=== PATIENT | female | born 1935 | race Two or more races ===

== ENCOUNTER 2018-10-26 20:05 | Inpatient (IN) | payer MEDICARE, MEDICAID ==
[~2018-10-26] VITALS: Ht 172.7 cm; Wt 87.1 kg
--- NOTE | 2018-10-26 20:10 | NUR ---
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 Pt is A, O/4, Romanian Speaking, able to walk without assistance. Seen and evaluated by Dr. Sadler at .
--- NOTE | 2018-10-26 20:20 | NUR ---
Labs drawn, EKG done. No distress noted. Pt's at BS.
[2018-10-26] MEDS ORDERED: NICARDIPINE IN NACL, ISO-OSM 200 ML IV PRN (20:30)
[2018-10-26] MEDS ORDERED: NICARDIPINE IN DEXTROSE,ISO-OS 200 ML IV ONE (20:39)
[2018-10-26 20:44] LABS: BASOPHILS # (AUTO) 0.1 /CMM (0.0-0.2); BASOPHILS % (AUTO) 0.6 % (0.0-2.0); EOSINOPHILS % (AUTO) 3.2 % (0.0-6.0); HEMATOCRIT 50 % (33-45); HEMOGLOBIN 16.4 g/dL (11.5-14.8); LYMPHOCYTES # (AUTO) 2.1 /CMM (0.8-4.8); LYMPHOCYTES % (AUTO) 26.7 % (20.0-44.0); MEAN CORPUSCULAR HGB CONC 33 g/dl (31.0-36.0); MEAN CORPUSCULAR VOLUME 88 fL (82-100); MONOCYTES # (AUTO) 0.5 /CMM (0.1-1.30); MONOCYTES % (AUTO) 6.5 % (2.0-12.0); PLATELET COUNT (AUTO) 207 /CMM (150-450)
--- NOTE | 2018-10-26 20:45 | NUR ---
Pt transported to Radiology for CT Head w/o contrast
--- NOTE | 2018-10-26 20:50 | NUR ---
Pt came back from Radiology
[2018-10-26 20:53] LABS: CARBON DIOXIDE 26 mmol/L (21-32); CHLORIDE 105 mmol/L (98-107); CREATININE 0.8 mg/dL (0.6-1.3); GLUCOSE 114 mg/dL (74-106); POTASSIUM 3.5 mmol/L (3.5-5.1); SODIUM SERUM 142 mmol/L (136-145)
[2018-10-26 21:06] LABS: UREA NITROGEN, BLOOD 16 mg/dL (7-18)
--- NOTE | 2018-10-26 21:17 | NUR ---
Assisted pt to the BR
--- NOTE | 2018-10-26 21:33 | NUR ---
Pt resting comfortably, no c/o headache, no distress noted. Seen by Dr. Pablo at . Pt will be admitted to ICU. Gun Number and notified. Awaiting bed assignment.
[2018-10-26] MEDS ORDERED: RIVA10TA PO (21:50)
[2018-10-26] MEDS ORDERED: CAPT12.53 PO (21:50)
[2018-10-26] MEDS ORDERED: TIMO5SOL11 EACHEYE (21:50)
[2018-10-26] MEDS ORDERED: ROSU10TA2 PO (21:50)
[2018-10-26] MEDS ORDERED: ATEN50TA PO (21:50)
[2018-10-26] MEDS ORDERED: OLME1TAB16 PO (21:50)
[2018-10-26] MEDS ORDERED: MELO-105 PO (21:50)
--- NOTE | 2018-10-26 22:08 | NUR ---
Pt wants to ambulated to the BR to urinate. Was offered a bedpan but refused. Assisted to the BR
--- NOTE | 2018-10-26 22:45 | NUR ---
Pt will be admitted to ICU - 263, report given to GABBIE Olvera.
--- NOTE | 2018-10-26 23:00 | NUR ---
Pt walked to the BR with assist.
--- NOTE | 2018-10-26 23:42 | NUR ---
Transported pt to ICU with ongoing Nicardepine drip. VSS.
[2018-10-27] VITALS (35 sets, daily range): BP systolic 113–165; BP diastolic 62–113
--- NOTE | 2018-10-27 00:51 | NUR ---
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 RECEIVED THE PT FRM ER VIA [employer]. PT AWAKE, ALERT, FOLLOW COMMANDS. MILLINERY DESIGNER SHOWING AFIB. PT ON RPPM AIR. SAT 98%. NO ACUTE DISTRESS NOTD. IV RT AND LT HAND 20G. CARDENE DRIP STARTED FROM ER. WILL CONTINUE TO MONITOR VITALS,
[2018-10-27] MEDS ORDERED: NICARDIPINE IN NACL, ISO-OSM 200 ML IV PRN (01:00)
[2018-10-27] MEDS ORDERED: ACETAMINOPHEN 325 MG TABLET PO PRN (03:00)
[2018-10-27] MEDS ORDERED: BLOOD SUGAR DIAGNOSTIC 1 EACH STRIP IN SCH (06:00)
--- NOTE | 2018-10-27 06:12 | NUR ---
FREIGHT CLAIM INVESTIGATORRN. MERRITT HELD AT 0400. BP 120/68. WILL CONTINUE TO MONITOR VITALS.
--- NOTE | 2018-10-27 06:14 | NUR ---
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 AM CARE, ORAL CARE, BED BATH GIVEN. LINEN CHANGED, PT ON ROOM AIR. SAT 99%, NO ACUTE DISTRESS NOTED. EMERGENCY WORKER SHOWING AFIB. WILL CONTINUE TO MONITOR VITALS.
--- NOTE | 2018-10-27 08:00 | NUR ---
ICU/RN INITIAL NOTES,AM RECEIVED REPORT FROM NIGHT NURSE. PT ALERT, AWAKE, ORIENTED. RESTING COMFORTABLY IN BED. ON ROOM AIR, NO ACUTE DISTRESS NOTED. PT ON TELE, A.FIB. CONTROLLED. SKIN INTACT. PT INDEPENDENT, ABLE TO MOVE SELF. NEURO CHECKS DONE, NO WEAKNESS OR SLURRED SPEECH NOTED. WILL CONTINUE TO MONITOR PT. ALL NEEDS WILL BE ATTENDED TO, SAFETY MEASURES TAKEN, BED IN LOW POSITION, SIDE RAILS UP, CALL LIGHT WITHIN REACH.
[2018-10-27] MEDS: BLOOD SUGAR DIAGNOSTIC 1 EACH STRIP IN SCH ×4 (08:50→21:04)
--- NOTE | 2018-10-27 10:00 | NUR ---
ICU/RN: SWALLOW EVAL DONE. PT PASSED. PO MEDICATION WILL NOW BE GIVEN
[2018-10-27] MEDS: ASPIRIN EC 325 MG TABLET.DR PO SCH (10:19)
[2018-10-27 13:05] LABS: CHOLESTEROL 236 mg/dL (<200); HDL CHOLESTEROL 43 mg/dL (40-60); LDL 175 mg/dL (0-99); TRIGLYCERIDES 126 mg/dL (30-150)
--- NOTE | 2018-10-27 18:31 | NUR ---
ICU/RN: PT TRANSPORTED TO PERLITA ROOM 116-2. REPORT ENDORSED TO RN. ALL BELONGINGS OF PT SENT WITH PT. DAUGHTER CALLED AND INFORMED OF TRANSFER. ALL NEEDS MET, SAFETY MEASURES TAKEN. TRANSFERRED PER ACLS GUIDELINES.
--- NOTE | 2018-10-27 19:30 | NUR ---
RN INITIAL NOTES RECEIVED THE PATIENT AWAKE, AT BEDSIDE. PT IS A/O X4, MAINLY SWAZI SPEAKING. ON ROOM AIR, NAD. AFIB ON THE MONITOR. NEURO CHECKS DONE. PT IS CONTINENT, ABLE TO AMBULATE WITH 1 PERSON ASSIST FOR SAFETY. LEFT HAND 20G AND RIGHT HAND 20G BOTH FLUSHED AND PATENT, NO S/S OF INFILTRATION/INFECTION, DRESSINGS CDI. BED LOW AND LOCKED, SIDERAILS UP, CALL LIGHT WITHIN REACH. WILL MONITOR
[2018-10-27] MEDS ORDERED: ATORVASTATIN 40 MG TABLET PO SCH (22:00)
[2018-10-28] VITALS: BP 152/102
[2018-10-28 04:00] VITALS: BP 159/96
[2018-10-28] MEDS: BLOOD SUGAR DIAGNOSTIC 1 EACH STRIP IN SCH ×2 (06:31→12:00)
[2018-10-28 06:42] LABS: CALCIUM, SERUM 9.5 mg/dL (8.5-10.1); CARBON DIOXIDE 27 mmol/L (21-32); CHLORIDE 104 mmol/L (98-107); GLUCOSE 128 mg/dL (74-106); PHOSPHORUS 3.9 mg/dL (2.5-4.9); POTASSIUM 3.6 mmol/L (3.5-5.1); SODIUM SERUM 142 mmol/L (136-145); UREA NITROGEN, BLOOD 24 mg/dL (7-18)
--- NOTE | 2018-10-28 07:10 | NUR ---
RN NOTES RECEIVED PT ON BED, A/OX4, TANZANIAN SPEAKING ,ON RA, RESPIRATION EVEN AND UNLABORED,ON TELE A.FIB, HR IN 70'S , R AND L HAND IV SITES G 20 SITES CLEAN, DRY AND INTACT, NEURO CHECK DONE , NO NEUROLOGICAL DEFICITS NOTED AT THIS TIME , SR UP X3, CALL LIGHT WITHIN EASY REACH, BED LOCKED AND IN LOWEST POSITION, CONTINUE TO MONITOR .
[2018-10-28 07:25] LABS: CHOLESTEROL 228 mg/dL (<200); HDL CHOLESTEROL 39 mg/dL (40-60); LDL 169 mg/dL (0-99); TRIGLYCERIDES 169 mg/dL (30-150)
[2018-10-28 08:00] VITALS: BP 173/95
[2018-10-28] MEDS: ASPIRIN EC 325 MG TABLET.DR PO SCH (08:26)
[2018-10-28 08:53] LABS: BASOPHILS % (AUTO) 0.4 % (0.0-2.0); EOSINOPHILS % (AUTO) 1.8 % (0.0-6.0); HEMATOCRIT 54 % (33-45); HEMOGLOBIN 17.8 g/dL (11.5-14.8); LYMPHOCYTES # (AUTO) 2.6 /CMM (0.8-4.8); LYMPHOCYTES % (AUTO) 25.6 % (20.0-44.0); MEAN CORPUSCULAR HGB CONC 33 g/dl (31.0-36.0); MEAN CORPUSCULAR VOLUME 87 fL (82-100); MONOCYTES # (AUTO) 0.6 /CMM (0.1-1.30); MONOCYTES % (AUTO) 6.5 % (2.0-12.0); NEUTROPHILS # (AUTO) 6.6 /CMM (1.8-8.9); NEUTROPHILS % (AUTO) 65.7 % (43.0-81.0); PLATELET COUNT (AUTO) 232 /CMM (150-450); RED BLOOD CELL COUNT(AUTO) 6.28 MIL/uL (4.0-5.2); WHITE BLOOD COUNT (AUTO) 10.1 K/uL (4.3-11.0)
[2018-10-28 09:09] VITALS: BP 168/87
[2018-10-28 12:00] VITALS: BP 149/81
[2018-10-28 13:33] VITALS: BP 149/81
[2018-10-28] MEDS ORDERED: ASPI-869 PO (14:37)
[2018-10-28] MEDS ORDERED: ROSU20TA2 PO (14:37)
--- NOTE | 2018-10-28 14:55 | NUR ---
RN NOTES DISCHARGE INSTRUCTION GIVEN TO PT AND HER DAUGHTER , THEY VERBALIZED UNDERSTANDING , RIGHT AND LEFT HAND IV SITES REMOVED, PT LEFT THE FLOOR TO MAIN ENTRANCE ACCOMPANIED BY STAFF MEMBER AND HER DAUGHTER VIA W/C IN STABLE CONDITION .
== END 2018-10-28 14:59 | disposition home or self-care (01) | DRG 65 ==
LOC: ER 20:06 → ICU 22:04 → TELE-TD 10-27 18:09 → MEDSG1 10-28 14:19
PROVIDERS: ADMIT Internal Medicine
DX: I63.9 Cerebral infarction, unspecified (principal); D68.59 Other primary thrombophilia; I16.0 Hypertensive urgency; E78.5 Hyperlipidemia, unspecified; Z79.01 Long term (current) use of anticoagulants; Z86.73 Personal history of transient ischemic attack (TIA), and cerebral infarction without residual deficits; I48.2 Chronic atrial fibrillation; G83.24 Monoplegia of upper limb affecting left nondominant side
CPT/HCPCS: 36415; 70450-TC; 70551-TC; 71045-TC; 80048-TC; 80061-TC; 80305; 82962-TC; 83735-TC; 84100-TC; 84484-TC; 85025-TC; 85730-TC; 87081-TC; 92526; 92611-TC; 93307-TC; 93880-TC; G0378

== ENCOUNTER 2018-10-29 21:29 | Emergency (ER) | END 2018-10-30 00:36 | disposition short-term general hospital (02) | DX: I63.412 Cerebral infarction due to embolism of left middle cerebral artery (principal); I63.232 Cerebral infarction due to unspecified occlusion or stenosis of left carotid arteries; I10 Essential (primary) hypertension; I48.91 Unspecified atrial fibrillation; Z86.73 Personal history of transient ischemic attack (TIA), and cerebral infarction without residual deficits; Z79.82 Long term (current) use of aspirin ==